=== PATIENT | female | born 2000 | race Caucasian/White ===

== ENCOUNTER 2024-03-17 19:29 | Emergency (ER) | payer BC, SELFPAY ==
--- NOTE | 2024-03-17 19:42 | ED.LOWEXIN ---
HPI - Extremity Injury (Lower) General Chief Complaint: Extremity Injury, Lower Stated Complaint: left big toe infection Time Seen by Provider: 03/17/24 19:42 Source: patient Mode of arrival: ambulatory Limitations: no limitations History of Present Illness HPI Narrative: 23-year-old female presented for complaint of an ingrown toenail since 11/2022. Since then she has trimmed a large amount of the nail and attempted to manage it at home. States she has pain to both sides of the nail, drainage, and pain; and is now seeking evaluation. Denies streaking or fever. Related Data Allergies Allergy/AdvReac Type Severity Reaction Status Date / Time No Known Allergies Allergy Verified 03/17/24 19:42 Review of Systems Review of Systems: CONSTITUTIONAL: Denies body aches, fever, chills, or sweats. EYES: Denies visual changes, redness, or discharge. ENT: Denies rhinorrhea, congestion CARDIOVASCULAR: Denies chest pain, palpitations, or edema. RESPIRATORY: Denies cough or dyspnea. GASTROINTESTINAL: Denies abdominal pain, nausea, vomiting, or diarrhea. SKIN: per HPI MUSCULOSKELETAL: Denies back pain, joint pain, or myalgia. NEUROLOGIC: Denies headache, numbness, tingling, or weakness. PMFSH Comments At time of signature, I have reviewed and agree with nursing past medical, surgical, social and family history unless otherwise noted. Please see nursing chart for further information. There is no relevant family history pertinent to the presenting complaint Exam Narrative: GENERAL: Well-appearing ENT: Mucous membranes moist. Oropharynx without edema, erythema or lesions. NECK: Supple. No lymphadenopathy CHEST: Clear to auscultation. HEART: Regular rate and rhythm. SKIN: Warm, dry. Left great toenail ingrown with infection; large amount of swelling to medial aspect of nail, swelling and erythema to distal phalanx. Tender. Active purulent drainage. Appears to have partial nail removed per pt. S NEURO: Alert and oriented x3. Course Course Emergency Course: Patient is aware of diagnosis, understands and agrees to treatment plan. Anticipatory guidance given. Patient agrees to follow-up as directed and is aware of reasons to seek care at the emergency department. Portions of this record may have been created with voice recognition software Level of Care: Express Care Visit Vital Signs Vital signs: Reviewed MDM - Extremity Injury (Lower) MDM Narrative Medical decision making narrative: Discussed physical exam findings consistent with ingrown left great toenail. Post op shoe applied. Advised supportive measures and signs/symptoms to go to the ER. Pt is appropriate for outpt treatment and f/u with valance cutter. Differential Diagnosis Differential diagnosis: Likely other (ingrown nail with infection) Discharge Plan Discharge Clinical Impression: Ingrown toenail of left foot with infection Patient Disposition: Home, Self-Care Condition: Stable Instructions: Antibiotic Form, Ingrown Nail (ED) Additional Instructions: Soak your nail in warm soapy water 3 times each day. What This can help with any additional drainage that needs to come out. Elevate your foot; This will help decrease swelling and pain. Motrin and Tylenol as needed for pain Take antibiotic as directed Wear the post op shoe Please follow-up with your primary care doctor and valance cutter in the next 3 days. please go to the ED for any worsening symptoms or concerns Prescriptions: New amoxicillin-pot clavulanate 875-125 mg tablet 1 tablet PO Q12H 10 Days Qty: 20 0RF Follow-up/Referrals: PHYSICIAN,[facility] [Primary Care Provider] - Time of Disposition: 19:58
[2024-03-17 19:46] VITALS: BP 110/58; PULSE 75; RESP 20; TEMP 36.8; O2SAT 100
== END 2024-03-17 20:10 | disposition home or self-care (01) ==
PROVIDERS: Emergency Provider Nurse Practitioner Family
DX: L60.0 Ingrowing nail (principal)
CPT/HCPCS: 99203; G0463